=== PATIENT | female | born 1995 | race Hispanic/Latino ===

== ENCOUNTER 2018-10-27 15:00 | Emergency (ER) | payer BC ==
[2018-10-27 15:15] VITALS: RESP 18
--- NOTE | 2018-10-27 15:57 | ED PDOC ---
HPI: Trauma/Fall - HPI Time Seen by Provider: 10/27/18 15:35 Chief Complaint (Nursing): Trauma Chief Complaint (Provider): Trauma History Per: Patient History/Exam Limitations: no limitations Onset/Duration Of Symptoms: Days (2x) Injury Occurred (Timing): Days Ago: (1x) Location Of Injury: Right: Face, Leg (bruise), Left: Face, Posterior: Buttock (tailbone) Severity: Moderate Additional Complaint(s): 23 year old female with no pertinent past medical history presents to the ED for an evaluation of multisystem trauma that occurred last night. Patient admits to drinking alcohol last night and does not remember what happened, but she states that her apartment complex has 5 flights of stairs and she thinks that she fell down them. Patient presents with significant bruising to her left eye, and some bruising to the right side of her face and her chin, and states that she has bruising to her right leg, and pain to her tailbone area. Patient denies having ear pain, loss of hearing, numbness or tingling of the legs, tingling of the groin, bladder or bowel incontinence, or loss of sensation in her toes. PMD: None provided. Past Medical History Reviewed: Historical Data, Nursing Documentation, Vital Signs Vital Signs: Last Vital Signs Temp 99.3 F 10/27/18 15:10 Pulse 70 10/27/18 15:10 Resp 18 10/27/18 15:10 BP 122/82 10/27/18 15:10 Pulse Ox 97 10/27/18 15:10 PERFECTO Report Viewed: Yes - Medical History PMH: No Chronic Diseases - Surgical History Surgical History: Tonsillectomy - Family History Family History: States: No Known Family Hx - Social History Current smoker - smoking cessation education provided: No Alcohol: Social Drugs: Cannabis - Allergies Allergies/Adverse Reactions: Allergies Allergy/AdvReac Type Severity Reaction Status Date / Time aspirin Allergy ANAPHYLAXIS Verified 10/27/18 15:15 ibuprofen Allergy ANAPHYLAXIS Verified 10/27/18 15:15 Review of Systems ROS Statement: Except As Marked, All Systems Reviewed And Found Negative Eyes: Positive for: Other (left eye bruising, pain, redness, swelling. ) ENT: Negative for: Ear Pain ((-) loss of hearing) Genitourinary Female: Negative for: Incontinence Musculoskeletal: Positive for: Back Pain (tailbone pain) Skin: Positive for: Bruising (right leg, face) Neurological: Negative for: Numbness ((-) numbness, (-) tingling of extremities, groin, toes.) Physical Exam - Reviewed Nursing Documentation Reviewed: Yes Vital Signs Reviewed: Yes - Physical Exam Appears: Positive for: Well, Non-toxic, No Acute Distress Head Exam: Positive for: NORMOCEPHALIC. Negative for: ATRAUMATIC (left eye: swelling and ecchymosis. to frontalis: subconjunctival hemorrhage. ecchymosis to the right lateral edge of right eye. Jaw alligned.) Skin: Positive for: Normal Color, Warm, Dry. Negative for: Diaphoresis, Pallor, Rash Eye Exam: Positive for: EOMI ((-) entrapment bilaterally), PERRL ENT: Positive for: Normal ENT Inspection, TM Is/Are ((-) erythema (+) all landmarks are visible, (+) light reflection bilaterally) Neck: Positive for: Normal, Painless ROM, Supple. Negative for: Decreased ROM Cardiovascular/Chest: Positive for: Regular Rate, Rhythm Respiratory: Positive for: Normal Breath Sounds Back: Positive for: Other (tenderness to palpation of lower sacral S2-S3 region. None radiating pain) Extremity: Positive for: Normal ROM (full ROM of upper an lower extremities) Neurologic/Psych: Positive for: Alert, Oriented (3x) - ECG O2 Sat by Pulse Oximetry: 97 (RA) Pulse Ox Interpretation: Normal - CT Scan/US CT head Other Rad Studies (CT/US): Read By Radiologist, Radiology Report Reviewed (see MDM note) CT maxillofacial Other Rad Studies (CT/US): Read By Radiologist, Radiology Report Reviewed (see MDM note) CT lumbar spine Other Rad Studies (CT/US): Read By Radiologist, Radiology Report Reviewed (see MDM note) Medical Decision Making Medical Decision Makin:35 Initial impression: 23 year old female with multisystem trauma Initial plan: * CT head w/o contrast * CT maxillofacial w/o contrast * CT lumbar spine w/o contrast * upreg * reevaluation 17:06 CT head read and reviewed by radiologist FINDINGS: HEMORRHAGE: No intracranial hemorrhage. BRAIN: No mass effect or edema. No atrophy or chronic microvascular ischemic changes. VENTRICLES: No hydrocephalus. CALVARIUM: Unremarkable. PARANASAL SINUSES: Unremarkable as visualized. No significant inflammatory changes. MASTOID AIR CELLS: Unremarkable as visualized. No inflammatory changes. OTHER FINDINGS: None. IMPRESSION: No acute intracranial pathology identified. 17:08 CT maxillofacial read and reviewed by radiologist Findings: The facial bones appear unremarkable without acute displaced fracture. The orbits appear unremarkable. The temporomandibular joints appear located. The mastoid air cells appear clear. The paranasal sinuses appear clear. The visual ized brain appears unremarkable. The soft tissues appear unremarkable. Impression: No acute findings identified. See above. 17:11 CT lumbar spine read and reviewed by radiologist Findings: Vertebral body heights appear within normal limits. Alignment appears satisfactory. No acute fracture or subluxation identified. Paraspinal soft tissues appear unremarkable. Nonobstructing 3 mm left upper pole renal calculus. Limited visualization of the intra-abdominal and intrapelvic contents appear otherwise unremarkable. Impression: No acute fracture or subluxation identified. Nonobstructing 3 mm left upper pole renal calculus. (Pt advised of negative findings as well as the prescense renal calculus) Scribe Attestation: Documented byLenora Babin, acting as a scribe for Everette Keyes PA-C. Provider Scribe Attestation: All medical record entries made by the Scribe were at my direction and personally dictated by me. I have reviewed the chart and agree that the record accurately reflects my personal performance of the history, physical exam, medical decision making, and the department course for this patient. I have also personally directed, reviewed, and agree with the discharge instructions and disposition. Disposition - Clinical Impression Clinical Impression: Trauma, Fall (on) (from) other stairs and steps, initial encounter - Patient ED Disposition Is Patient to be Admitted: No Doctor Will See Patient In The: Office Counseled Patient/Family Regarding: Diagnosis, Need For Followup - Disposition [facility]: [facility] [Outside] Disposition: Routine/Home Disposition Time: 17:47 Condition: STABLE Instructions: General Trauma (DC), General Trauma, Preventing Falls Forms: [employer] (Slovak)
--- NOTE | 2018-10-27 17:29 | CT ---
Date of service: 10/27/2018 PROCEDURE: CT HEAD WITHOUT CONTRAST. HISTORY: s/p trauma; COMPARISON: None available. TECHNIQUE: Axial computed tomography images were obtained through the head/brain without intravenous contrast. Radiation dose: Total exam DLP = 882.01 mGy-cm. This CT exam was performed using one or more of the following dose reduction techniques: Automated exposure control, adjustment of the mA and/or kV according to patient size, and/or use of iterative reconstruction technique. FINDINGS: HEMORRHAGE: No intracranial hemorrhage. BRAIN: No mass effect or edema. No atrophy or chronic microvascular ischemic changes. VENTRICLES: No hydrocephalus. CALVARIUM: Unremarkable. PARANASAL SINUSES: Unremarkable as visualized. No significant inflammatory changes. MASTOID AIR CELLS: Unremarkable as visualized. No inflammatory changes. OTHER FINDINGS: None. IMPRESSION: No acute intracranial pathology identified.
--- NOTE | 2018-10-27 17:33 | CT ---
Date of service:10/27/2018 CT maxillofacial bones without IV contrast Indication: r/o fx - s/p trauma fall Comparison: None available Technique: Axial computed tomography images were obtained of the maxillofacial bones without the use of intravenous contrast. Coronal and sagittal reformatted images were generated and reviewed. This CT exam was performed using 1 or more of the following dose reduction techniques: Automated exposure control, adjustment of the MAA and/or kV according to patient size, and/or use of iterative reconstruction technique. Radiation dose: Total exam DLP = 788.29 mGy-cm. Findings: The facial bones appear unremarkable without acute displaced fracture. The orbits appear unremarkable. The temporomandibular joints appear located. The mastoid air cells appear clear. The paranasal sinuses appear clear. The visualized brain appears unremarkable. The soft tissues appear unremarkable. Impression: No acute findings identified. See above.
--- NOTE | 2018-10-27 17:39 | CT ---
Date of service: 10/27/2018 CT lumbar spine without IV contrast Indication: s/p trauma: sacral pain Comparison: None available Technique: Noncontrast axial images of the lumbar spine were provided. Sagittal and coronal reformatted images were generated and reviewed. This CT exam was performed using 1 or more of the following dose reduction techniques: Automated exposure control, adjustment of the MAA and/or kV according to patient size, and/or use of iterative reconstruction technique. Total exam DLP: 386.38 MGy-cm Findings: Vertebral body heights appear within normal limits. Alignment appears satisfactory. No acute fracture or subluxation identified. Paraspinal soft tissues appear unremarkable. Nonobstructing 3 mm left upper pole renal calculus. Limited visualization of the intra-abdominal and intrapelvic contents appear otherwise unremarkable. Impression: No acute fracture or subluxation identified. Nonobstructing 3 mm left upper pole renal calculus.
[2018-10-27 17:58] VITALS: BP 111/82; PULSE 75; TEMP 98.8; O2SAT 100
== END 2018-10-27 17:55 | disposition home or self-care (01) ==
LOC: H.ER 15:00
DX: S05.12XA Contusion of eyeball and orbital tissues, left eye, initial encounter (principal); N20.0 Calculus of kidney; W10.9XXA Fall (on) (from) unspecified stairs and steps, initial encounter